=== PATIENT | male | born 1965 | race Hispanic/Latino ===

== ENCOUNTER 2023-07-16 15:08 | Emergency (ER) | payer OTHER, SELFPAY ==
[2023-07-16] MEDS ORDERED: Ketorolac Tromethamine 30 MG/ML VIAL ONE ×2 (15:57→16:16)
[2023-07-16] MEDS ORDERED: Acetaminophen 500 MG TAB ONE ×2 (15:58→16:16)
== END 2023-07-16 16:38 | disposition home or self-care (01) ==
LOC: ERS 15:08
DX: S13.4XXA Sprain of ligaments of cervical spine, initial encounter (principal); S09.90XA Unspecified injury of head, initial encounter; S05.11XA Contusion of eyeball and orbital tissues, right eye, initial encounter; I10 Essential (primary) hypertension; V68.0XXA Driver of heavy transport vehicle injured in noncollision transport accident in nontraffic accident, initial encounter
CPT/HCPCS: 70450; 70486; 72125; 96372; J1885